=== PATIENT | female | born 2000 | race Caucasian/White ===

== ENCOUNTER 2018-01-08 01:36 | Emergency (ER) | payer SELFPAY ==
[2018-01-08] MEDS ORDERED: NS 0.9% 1000 ML* 1,000 ML IV ONE (02:02)
[2018-01-08] MEDS ORDERED: Metoclopramide IV* 5 MG/ML 2 ML VIAL IV SLOW PU ONE (02:02)
[2018-01-08 02:29] LABS: ABS Basophils 0.1 10^3/ul (0-0.2); ABS Eosinophils 0 10^3/ul (0-0.6); ABS Lymphocytes 1.4 10^3/ul (1.0-4.8); ABS Monocytes 0.7 10^3/ul (0-0.8); ABS Neutrophils 8.2 10^3/ul (1.5-7.7); ABS Nucleated RBC 0 10^3/ul; Eosinophil % 0.1 % (0-6); Hematocrit 37 % (35-47); Hemoglobin 12.8 g/dl (12.0-16.0); Lymphocyte % 13.9 % (25-47); Mean Corpuscular HGB Conc 34 g/dl (31-36); Mean Corpuscular Hemoglobin 32 pg (27-31); Mean Corpuscular Volume 93 fL (80-97); Mean Platelet Volume 8.5 um3 (7.4-10.4); Nucleated Red Blood Cells % 0; Platelet Count 223 10^3/ul (150-450); Red Cell Distribution Width 12 % (10.5-15); White Blood Count 10.3 10^3/ul (3.5-10.8)
[2018-01-08 02:44] LABS: EGFR Non-African American 64.7 (>60)
--- NOTE | 2018-01-08 06:24 | ED ---
India Marr Thomas, scribed for Angelia Greenberg MD on 01/08/18 at 0226 . Substance Abuse/Use - HPI Summary HPI Summary: The patient is a 17 year old female brought in by ambulance after using alcohol and marijuana tonight. She appears intoxicated. She vomited en route to [facility] [place], and she is actively retching in the emergency department. She is sleepy and arousable to voice. She cannot give a good history secondary to the intoxication. LEVEL 5 CAVEAT: HPI is limited by intoxication - History Of Current Complaint Chief Complaint: EDSubstanceAbuse Stated Complaint: INTOXICATION Time Seen by Provider: 01/08/18 01:43 Hx Obtained From: Patient Ingestion History: Type/Name Of Drug - ETOH, marijuana Overdose Characteristics: Oral Severity Currently: Moderate Character: Other - Sleepy - Allergies/Home Medications Allergies/Adverse Reactions: Allergies Allergy/AdvReac Type Severity Reaction Status Date / Time No Known Allergies Allergy Verified 01/08/18 01:48 PMH/Surg Hx/FS Hx/Imm Hx Sensory History: Denies: Hx Deafness Opthamlomology History: Denies: Hx Legally Blind EENT History: Denies: Hx Deafness Infectious Disease History: Unable to Obtain/Confirm Infectious Disease History: Denies: Traveled Outside the [place] in Last 30 Days - Family History Known Family History: Positive: Unknown - LEVEL 5 CAVEAT: FHx is limited by intoxication - Social History Occupation: Student Alcohol Use: ETOH instoxication this date Substance Use Type: Reports: Marijuana Smoking Status (MU): Unknown if Ever Smoked Review of Systems Negative: Fever Negative: Epistaxis All Other Systems Reviewed And Are Negative: No - Comments Additional Review of Systems Comments: LEVEL 5 CAVEAT: ROS is limited by intoxication Physical Exam - Summary Physical Exam Summary: VITAL SIGNS: Reviewed. GENERAL: Patient is a well-developed and nourished female who is lying comfortable in the stretcher. Patient is not in any acute respiratory distress. She is sleepy and arousable to voice. She is actively retching. HEAD AND FACE: No signs of trauma. No ecchymosis, hematomas or skull depressions. No sinus tenderness. EYES: PERRLA, EOMI x 2, No injected conjunctiva, no nystagmus. EARS: Hearing grossly intact. Ear canals and tympanic membranes are within normal limits. MOUTH: Oropharynx within normal limits. NECK: Supple, trachea is midline, no adenopathy, no JVD, no carotid bruit, no c- spine tenderness, neck with full ROM. CHEST: Symmetric, no tenderness at palpation LUNGS: Clear to auscultation bilaterally. No wheezing or crackles. CVS: Regular rate and rhythm, S1 and S2 present, no murmurs or gallops appreciated. ABDOMEN: Soft, non-tender. No signs of distention. No rebound no guarding, and no masses palpated. Bowel sounds are normal. EXTREMITIES: FROM in all major joints, no edema, no cyanosis or clubbing. NEURO: Alert and oriented x 3. SKIN: Dry and warm Triage Information Reviewed: Yes Vital Signs On Initial Exam: Initial Vitals Temp Pulse Resp BP Pulse Ox 98.2 F 83 16 111/52 97 01/08/18 01:40 01/08/18 01:40 01/08/18 01:40 01/08/18 01:40 01/08/18 01:40 Vital Signs Reviewed: Yes Diagnostics - Vital Signs Vital Signs Temp Pulse Resp BP Pulse Ox 01/08/18 01:47 82 111/52 97 01/08/18 01:46 88 98 01/08/18 01:40 98.2 F 83 16 111/52 97 - Laboratory Result Diagrams: 01/08/18 02:13 01/08/18 02:13 Lab Statement: Any lab studies that have been ordered have been reviewed, and results considered in the medical decision making process. Course/Dx - Course Assessment/Plan: The patient is a 17 year old female brought in by ambulance after using alcohol and marijuana tonight. She appears intoxicated. She vomited en route to [facility] [place], and she is actively retching in the emergency department. The patient was given Reglan and IV fluids. Bloodwork was obtained. After the patient is sober enough to be safely discharged, the patient will be discharged home with diagnosis of alcohol intoxication. - Diagnoses Provider Diagnoses: Alcohol intoxication Discharge - Sign-Out/Discharge Documenting (check all that apply): Discharge/Admit/Transfer - Discharge Plan Condition: Stable Disposition: HOME Patient Education Materials: Alcohol Intoxication (ED) Referrals: [facility] [place] PHYSICIAN REFERRAL [Outside] - 3 Days Additional Instructions: Follow up with your primary care physician in three days. If you do not have a primary care provider, you can use the [facility] physician referral service to find one and make an appointment. Return to the emergency department for any new or worsening symptoms. The documentation as recorded by the India devi Thomas accurately reflects the service I personally performed and the decisions made by me, Angelia Greenberg MD.
[2018-01-08 06:52] VITALS: BP 96/47
== END 2018-01-08 06:50 | disposition home or self-care (01) ==
LOC: ED 01:36
DX: F10.129 Alcohol abuse with intoxication, unspecified (principal); F12.90 Cannabis use, unspecified, uncomplicated; Y90.6 Blood alcohol level of 120-199 mg/100 ml
CPT/HCPCS: 36415; 80053; 80320; 85025; 96374; 99284; G0480; J2765